=== PATIENT | female | born 1960 | race Caucasian/White ===

== ENCOUNTER 2020-02-05 18:09 | Emergency (ER) | payer OTHER ==
[~2020-02-05] VITALS: Ht 167.6 cm; Wt 92.5 kg
[2020-02-05 18:51] VITALS: Ht 167.6 cm; Wt 92.5 kg
[2020-02-05 22:20] LABS: BASOPHIL % 0.7 % (0-2); PLATELET COUNT 242 x10^3mcL (130-400); RED CELL DISTRIBUTION WIDTH 12.9 % (11.5-14.5)
[2020-02-05 22:34] LABS: CARBON DIOXIDE 28.3 mmol/L (21-32); CREATININE SERUM 1.4 mg/dL (0.6-1.0); POTASSIUM SERUM 4.7 mmol/L (3.5-5.1)
[2020-02-05 22:40] LABS: ALBUMIN 3.8 g/dL (3.4-5.0); BILIRUBIN TOTAL 0.2 mg/dL (0.20-1.00); TOTAL PROTEIN, SERUM 7.3 g/dL (6.4-8.2)
[2020-02-05 22:42] LABS: CHOLESTEROL/HDL RATIO 5.3
[2020-02-05 23:49] LABS: microscopic required? NO
[2020-02-06 00:23] LABS: UA SPECIFIC GRAVITY >=1.030 (1.005-1.035); urine erythrocyte NEGATIVE (NEGATIVE)
[2020-02-06 02:19] VITALS: BP 134/76
== END 2020-02-06 02:19 | disposition home or self-care (01) ==
LOC: ED 18:09
PROVIDERS: Specialist
DX: R19.7 Diarrhea, unspecified (principal); Z20.828 Contact with and (suspected) exposure to other viral communicable diseases
CPT/HCPCS: 82962; U0003-CS